=== PATIENT | female | born 1990 | race Caucasian/White ===

== ENCOUNTER 2022-08-07 13:29 | Outpatient (REF) | payer MEDICAID, SELFPAY ==
--- NOTE | ~2022-08-07 | XR_ITS ---
EXAMINATION: XR LUMBOSACRAL SPINE WITH OBLIQUES CLINICAL INFORMATION: Back pain with sciatica. COMPARISON: CT abdomen/pelvis dated 12/04/2014. TECHNIQUE: AP, both oblique, and lateral views of the lumbar spine. Lateral view of the lumbosacral junction. FINDINGS: The vertebral bodies and posterior elements are normal. The disc spaces are preserved and the vertebral alignment is normal. The paraspinal soft tissues are normal. XR/XR lumbar spine 4V min IMPRESSION: Unremarkable examination.
== END 2022-08-07 13:30 | disposition home or self-care (01) ==
LOC: HO.XRAY 13:29
PROVIDERS: PCP Registered Nurse; Visit Provider Internal Medicine
DX: M54.41 Lumbago with sciatica, right side (principal); M54.42 Lumbago with sciatica, left side
CPT/HCPCS: 72110

== ENCOUNTER → 2022-10-15 13:41 | Outpatient (BNVA) | payer MEDICAID, SELFPAY | PROVIDERS: PCP Registered Nurse; Visit Provider Obstetrics & Gynecology | DX: Z30.09 Encounter for other general counseling and advice on contraception (principal) | CPT/HCPCS: 99212 ==

== ENCOUNTER 2022-10-28 09:02 | Outpatient (REF) | payer MEDICAID, SELFPAY ==
[2022-10-28 16:07] LABS: CT PCR NOT DETECTED (Not Detect.); NG PCR NOT DETECTED (Not Detect.)
[2022-10-31 07:20] LABS: HPV mRNA E6/E7 rflx Detected (Not Detected)
[2022-10-31 07:23] LABS: HPV 16 RNA NOT DETECTED (NOT DETECTED)
== END 2022-10-28 09:03 | disposition home or self-care (01) ==
LOC: HO.LNP 09:02
PROVIDERS: PCP Registered Nurse; Visit Provider Obstetrics & Gynecology
DX: Z30.46 Encounter for surveillance of implantable subdermal contraceptive (principal); Z11.51 Encounter for screening for human papillomavirus (HPV)
CPT/HCPCS: 11982; 87491; 87591; 87624; 87625; 88142

== ENCOUNTER 2022-11-19 10:24 | Outpatient (REF) | payer MEDICAID, SELFPAY | END 2022-11-19 10:25 | disposition home or self-care (01) | LOC: HO.LNP 10:24 | PROVIDERS: PCP Registered Nurse; Visit Provider Obstetrics & Gynecology | DX: R87.810 Cervical high risk human papillomavirus (HPV) DNA test positive (principal); R87.610 Atypical squamous cells of undetermined significance on cytologic smear of cervix (ASC-US) | CPT/HCPCS: 57454; 81025; 88305 ==

== ENCOUNTER → 2022-12-12 11:00 | Outpatient (BNVA) | payer MEDICAID, SELFPAY | PROVIDERS: PCP Registered Nurse; Visit Provider Obstetrics & Gynecology | DX: Z30.09 Encounter for other general counseling and advice on contraception (principal); R87.610 Atypical squamous cells of undetermined significance on cytologic smear of cervix (ASC-US); R87.810 Cervical high risk human papillomavirus (HPV) DNA test positive | CPT/HCPCS: 99212 ==

== ENCOUNTER 2024-07-15 09:10 | Outpatient (REF) | payer MEDICAID, SELFPAY ==
[2024-07-15 11:23] LABS: MANUAL DIFF FLAG NO
[2024-07-15 11:35] LABS: Basophils Percent Auto 0.2 % (0-2); Eosinophils Percent Auto 0.2 % (0-4); Hemoglobin 15.8 g/dl (12.0-16.0); Imm Gran Abs Auto 0.02 X10*3/uL (0.00-0.03); Imm Gran Pct Auto 0.3 % (0.0-0.4); Lymphocytes Absolute Auto 1.7 X10*3/uL (1.2-4.9); Lymphocytes Percent Auto 26.2 % (20-40); Mean Corpuscular HGB Conc 35.1 g/dl (31.0-35.0); Mean Corpuscular Hemoglobin 32.5 pg (27.0-33.0); Mean Corpuscular Volume 92.6 fL (80.0-98.0); Mean Platelet Volume 10.1 fL (9.4-12.3); Monocytes Absolute Auto 0.4 X10*3/uL (0.1-1.2); Monocytes Percent Auto 6.2 % (2-11); Neutrophils Absolute Auto 4.4 x10*3/uL (2.0-8.3); Neutrophils Percent Auto 66.9 % (45-73); Platelet Count 279 X10*3/uL (160-400); Red Blood Count 4.86 X10*6/uL (4.20-5.50); Red Cell Distribution Width 12.4 % (11.0-16.0); White Blood Count 6.6 X10*3/uL (4.8-10.8)
[2024-07-15 12:02] LABS: Alanine Aminotransferase 35 U/L (0-31); Albumin Level 4.2 g/dL (3.5-5.0); Alkaline Phosphatase 67 U/L (39-117); Anion Gap 11 (12-20); Aspartate Amino Transferase 25 U/L (5-31); Blood Urea Nitrogen 6 mg/dL (9-16); Calcium 9.7 mg/dL (8.4-10.2); Carbon Dioxide 24 mmol/L (22-29); Chloride 107 mmol/L (96-108); Cholesterol 183 mg/dL (<200); Estimated Glomerular Filt Rate > 60; Glucose Random 87 mg/dL (60-115); HDL Cholesterol 44 mg/dL (>40); LDL Cholesterol Calculated 124 mg/dL (<100); Sodium 138 mmol/L (135-145); Total Protein 7.7 g/dL (6.5-8.0); Triglycerides 78 mg/dL (<150)
[2024-07-15 12:09] LABS: TSH reflex Free T4 0.53 uIU/mL (0.32-4.0)
[2024-07-15 12:12] LABS: Syphilis Screen Nonreactive (Nonreactive)
[2024-07-15 12:16] LABS: Estimated Average Glucose 85 mg/dL; Hemoglobin A1c % 4.6 % (<6.0)
[2024-07-15 12:17] LABS: ~HepC Num1 0.17 S/CO (0.00-0.79); ~Hepatitis C Antibody Nonreactive (Nonreactive)
[2024-07-15 12:43] LABS: Reflex LDLD? No
[2024-07-18 07:23] LABS: TS Negative Control Passed; TS Panel A 0; TS Panel B 0; TS Positive Control Passed; TSpotTB Negative (Negative)
[2024-07-19 17:18] LABS: HIV RNA PCR Qn Copies 29 copies/mL (NOT DETECTED); HIV RNA PCR Qn Log Copies 1.46 (NOT DETECTED)
[2024-07-20 15:09] LABS: Absolute CD3 Count 1616 cells/uL (840-3060); Absolute CD4 Count 639 cells/uL (490-1740); Absolute CD8 Count 987 cells/uL (180-1170); Absolute Lymphocytes 2033 cells/uL (850-3900); CD4 CD8 Ratio 0.65 (0.86-5.00); Percent CD3 Cells 80 % (57-85); Percent CD4 Cells 31 % (30-61); Percent CD8 Cells 49 % (12-42)
== END 2024-07-15 09:11 | disposition home or self-care (01) ==
LOC: HO.HHCL 09:10
PROVIDERS: PCP Student in an Organized Health Care Education/Training Program; Visit Provider General Practice
DX: B20 Human immunodeficiency virus [HIV] disease (principal); E66.3 Overweight
CPT/HCPCS: 36415; 80053; 80061; 83036; 84443; 85025; 86359; 86360; 86481; 86780; 86803; 87536

== ENCOUNTER 2024-10-21 11:50 | Outpatient (REF) | payer MEDICAID, SELFPAY ==
[2024-10-21 13:18] LABS: MANUAL DIFF FLAG NO
[2024-10-21 13:20] LABS: Basophils Percent Auto 0.3 % (0-2); Eosinophils Percent Auto 0.2 % (0-4); Hematocrit 42.4 % (37.0-47.0); Hemoglobin 15.3 g/dl (12.0-16.0); Imm Gran Abs Auto 0.02 X10*3/uL (0.00-0.03); Imm Gran Pct Auto 0.3 % (0.0-0.4); Lymphocytes Absolute Auto 1.9 X10*3/uL (1.2-4.9); Lymphocytes Percent Auto 29.5 % (20-40); Mean Corpuscular HGB Conc 36.1 g/dl (31.0-35.0); Mean Corpuscular Hemoglobin 32.7 pg (27.0-33.0); Mean Corpuscular Volume 90.6 fL (80.0-98.0); Mean Platelet Volume 10.1 fL (9.4-12.3); Monocytes Absolute Auto 0.5 X10*3/uL (0.1-1.2); Monocytes Percent Auto 8.5 % (2-11); Neutrophils Absolute Auto 3.9 x10*3/uL (2.0-8.3); Neutrophils Percent Auto 61.2 % (45-73); Platelet Count 273 X10*3/uL (160-400); Red Blood Count 4.68 X10*6/uL (4.20-5.50); Red Cell Distribution Width 12.8 % (11.0-16.0); White Blood Count 6.4 X10*3/uL (4.8-10.8)
[2024-10-21 13:37] LABS: Alanine Aminotransferase 36 U/L (0-31); Albumin Level 4.5 g/dL (3.5-5.0); Alkaline Phosphatase 78 U/L (39-117); Anion Gap 13 (12-20); Aspartate Amino Transferase 29 U/L (5-31); Bilirubin Total 1.4 mg/dL (0.0-1.0); Blood Urea Nitrogen 7 mg/dL (9-16); Carbon Dioxide 23 mmol/L (22-29); Chloride 107 mmol/L (96-108); Estimated Glomerular Filt Rate > 60; Glucose Random 73 mg/dL (60-115); Potassium 3.6 mmol/L (3.3-5.1); Sodium 139 mmol/L (135-145); Total Protein 8.3 g/dL (6.5-8.0)
[2024-10-21 13:52] LABS: Appearance Urine Clear; Color Urine Yellow; Glucose Urine UA Negative (Negative); Leukocyte Esterase Urine Negative (Negative); Nitrite Urine Negative (Negative); PH 5.5 (5.0-9.0); Specific Gravity - Urine 1.025 (1.005-1.025); UMIC TRIGGER UACC YES; Urine Blood Trace (Negative); Urine Ketones 40 mg/dL (Negative); Urine Protein Negative (Neg-Trace)
[2024-10-21 13:56] LABS: Bacteria Urine None Seen (None Seen); Hyaline Casts Urine 0-2 /LPF (0-2); Squamous Epithelial Cell Urine 0-2 /HPF (0-2); WBC Urine 0-5 /HPF (0-5)
[2024-10-21 15:01] LABS: CT PCR NOT DETECTED (Not Detect.); NG PCR NOT DETECTED (Not Detect.)
[2024-10-22 09:15] LABS: Hepatitis A Antibody IgG REACTIVE (Nonreactive); ~Hepatitis A Antibody IgG 8.35 S/CO (0.00-0.99)
[2024-10-22 09:32] LABS: HBS Num1 167.51 mIU/mL (0-7.99); HBc Num1 0.12 S/CO (0.00-0.79); HBsAGNum1 0.48 S/CO (0.00-0.99); Hepatitis B Core Antibody Nonreactive (Nonreactive); Hepatitis B Surface Antigen Negative (Negative); ~Hepatitis B Surface Antibody REACTIVE (Nonreactive)
[2024-10-22 09:34] LABS: Mumps Virus IgG Antibody >300.00 AU/mL; Rubella IgG Antibody 6.09 Index
[2024-10-22 19:14] LABS: HIV RNA PCR Qn Copies 141 copies/mL (NOT DETECTED); HIV RNA PCR Qn Log Copies 2.15 (NOT DETECTED)
[2024-10-27 16:13] LABS: Absolute CD3 Count 1685 cells/uL (840-3060); Absolute CD4 Count 738 cells/uL (490-1740); Absolute CD8 Count 954 cells/uL (180-1170); Absolute Lymphocytes 2009 cells/uL (850-3900); CD4 CD8 Ratio 0.77 (0.86-5.00); Percent CD3 Cells 84 % (57-85); Percent CD4 Cells 37 % (30-61); Percent CD8 Cells 47 % (12-42)
== END 2024-10-21 11:51 | disposition home or self-care (01) ==
LOC: HO.HHCL 11:50
PROVIDERS: Visit Provider Student in an Organized Health Care Education/Training Program
DX: B20 Human immunodeficiency virus [HIV] disease (principal)
CPT/HCPCS: 36415; 80053; 81001; 85025; 86359; 86360; 86704; 86706; 86708; 86735; 86762; 86765; 87340; 87491; 87536; 87591

== ENCOUNTER 2024-10-28 10:57 | Outpatient (REF) | payer MEDICAID, SELFPAY ==
[2024-10-29 03:32] LABS: CT PCR NOT DETECTED (Not Detect.); NG PCR NOT DETECTED (Not Detect.)
[2024-10-29 13:13] LABS: Bacterial Vaginosis PCR NEGATIVE (Negative); Candida Group PCR NOT DETECTED (Not Detect); Candida glab krusei PCR NOT DETECTED (Not Detect); Trichomonas vaginalis PCR NOT DETECTED (Not Detect)
== END 2024-10-28 10:58 | disposition home or self-care (01) ==
LOC: HO.LAB 10:57
PROVIDERS: PCP General Practice; Visit Provider Advanced Practice Midwife
DX: Z01.419 Encounter for gynecological examination (general) (routine) without abnormal findings (principal); N89.8 Other specified noninflammatory disorders of vagina
CPT/HCPCS: 0352U; 87491; 87591; 99395; 99459

== ENCOUNTER 2024-10-28 10:57 | Outpatient (AMB) | payer MEDICAID, SELFPAY ==
[2024-10-28 11:10] VITALS: BP 118/70; BMI 30.5
--- NOTE | 2024-10-28 11:10 | MHC.OFFVIS ---
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 Executive Communications Services: Director Executive Communications Present Information Interpreted: clinical only Town Marshal: Town Marshal Present Allergies ibuprofen Allergy (Mild, Verified 10/28/24 11:14) rash morphine Allergy (Unknown, Verified 10/28/24 11:10) itching tylenon Allergy (Mild, Uncoded 10/28/24 11:13) Rash SEAFOOD Allergy (Unknown, Uncoded 10/28/24 11:10) HIVES,DIFFICULTY BREATHING Medication List - Last Reconciled 10/28/24 by Della Pacheco CNM [id number] ala 50-200-25 mg (Biktarvy) 1 tab PO QAM Is last menstrual period known: Yes Last menstrual period: 10/23/24 HPI 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 Patient is HIV positive and has been well-controlled with Biktarvy for the last number of years. She had the HIV discovered in her with her 15-year-old [place] she also has a 9-year-old both were delivered by . Both are HIV negative she delivered the 2nd child at [facility] and she says all the appropriate testing and treatment of her happened and she is hoping at this point to have another baby with her . They have been together for many years he is still HIV negative and was re tested as recently as last month. They sometimes use condoms but she is also following her fertility with an sasha. She is arranging appointments with all of her providers to discuss her planning for a so she is sure that she does things correctly. She is trying to lose a little bit of weight by eating healthy and exercising more right now because she had gained a little bit of weight. 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 Her 9-year-old and especially her 15 older kind of urging her to have a baby and she is encouraging them to be patient because she wants to continue the conversations with offer doctors 1st. [facility] Medical History (Updated 10/28/24 @ 12:08 by Della Pacheco CNM) LGSIL on Pap smear of cervix HIV (human immunodeficiency virus infection) Panic attack Anxiety Social History Patient Tobacco Use Status: Never used Tobacco Female Reproductive History Menstrual Age of Menarche: 14 Duration of menses: 3-5 days Date of last menstrual period: 10/23/24 control method: none Total pregnancies: 2 Full term: 2 Date of last pap smear: 10/28/22 (ASCUS+hpc,2015 abn pap) History of abnormal pap smear: Yes (ASCUS) Physical Exam Vital Signs: Last Vital Signs BP 118/70 10/28/24 11:10 BMI result Body Mass Index 30.5 Const General: healthy appearing, comfortable, no acute distress, well developed and alert Nutritional Appearance: average body habitus Orientation/consciousness: patient oriented x3 Limitations: no limitations HEENT Head: Yes normocephalic Neck Neck: Yes normal visual inspection Chest Chest palpation & inspection: normal inspection of the chest Breast/axilla inspection: normal inspection of the breasts and normal inspection of the axillae Breast/axilla palpation: normal palpation of the breasts and normal palpation of the axillae Resp Effort & Inspection: normal respiratory effort GI Inspection: Yes normal to inspection, No Abdominal wall edema and No distended Palpation (GI): Soft to palpation and nontender Other: External exam within normal limits vagina is pink and moist cervix nulliparous pink smooth healthy with end of menses brown mucousy staining uterus feels midposition mobile nontender adnexa nontender good tone with Kegel. General: Yes bladder normal to palpation External Female Exam: normal external appearance and normal appearance of the urethra Speculum Exam - Vagina: normal appearance of the vagina, normal palpation and normal vaginal discharge Speculum Exam - Cervix: normal appearance of the cervix, normal palpation and nontender Bimanual exam- vagina & uterus: normal bimanual exam, normal palpation, uterine size normal, bladder normal to palpation, consistency normal, normal palpation, uterine mobility normal, uterine shape normal, No Cervical tenderness present, non-tender and no cervical motion tenderness Bimanual Exam- Adnexa, other: normal adnexae, no masses, normal and No adnexal tenderness Neuro General: patient oriented x3 Results Reviewed Results Reviewed: Name: Sunshine Quach Y Age/Sex: 32/F Attending: Tha Heredia MD : 1990 Submitted by: Tha Heredia MD Copies to: Alayna Blas [facility] MR #: [id number] Status: DEP REF Collected: 11/19/22 Location: [facility] Received: 11/19/22 Diagnosis A. Endocervix, curettage: Few superficial fragments of endocervical squamous epithelium within normal limits; mucoinflammatory material. B. Cervix, 5 o'clock, biopsy: - Mildly inflamed squamous mucosa with reactive changes; no fully-developed koilocytic atypia identified. - No endocervical epithelium identified. C. Cervix, 6 o'clock, biopsy: - Mildly inflamed squamous mucosa with reactive changes; no fully-developed koilocytic atypia identified. - No endocervical epithelium identified. D. Cervix, 12 o'clock, biopsy: - Minute fragment of endocervical epithelium within normal limits; scant mucoinflammatory material. - No squamous epithelium identified. COMMENT: The findings are concordant with the patient's recent Pap/cytology specimen ([id number]; ASCUS with positive HPV) the- slide reviewed. Clinical History ASCUS with positive high risk HPV cervical Microscopic Description A-D. Microscopic sections reviewed. Material Received A: ECC B: Cx bx 5 o'clock C: Cx bx 6 o'clock D: Cx bx 12 o'clock Gross Description Received in four parts. Part A: Received in formalin labeled ECC is a 0.4 x 0.4 x 0.15 cm. aggregate of mucus and blood with Patient: Sunshine Quach Y Age/Sex: 32/F MR#: [id number] Page 1 of 2 Surgical Pathology [id number] delicate shards of bloom-pink tissue. The specimen is submitted in toto in a single cassette labeled A. Part B: Received in formalin labeled Cx bx 5 o'clock is a 0.7 cm. in greatest dimension, glistening, semitranslucent, rubbery, ruano, white-pink, wedge-shaped fragment of mucosa, which is submitted in toto i a single cassette labeled B. Part C: Received in formalin labeled Cx bx 6 o'clock is a 0.35 cm. in greatest dimension, glistening, semitranslucent, rubbery, bloom-pink, wedge-shaped fragment of mucosa, which is submitted in toto in a single cassette labeled C. Part D: Received in formalin labeled Cx bx 12 o'clock is a 0.4 x 0.3 x 0.1 cm. aggregate of predominantly clear mucus and blood with scant delicate threads of bloom-pink tissue. The specimen is submitted in toto in a single cassette labeled D. CEDS Copies To Alayna Blas [facility] [address] [place] [address] Tha Heredia MD [address] [place] [address] Dr. Pandya [address] [place] [id number] NOTE: Some or all of the immunohistochemical tests reported herein may have been developed and their performance characteristics determined by [facility]. They have not been cleared or approved by the U.S. Food and Drug Administration (FDA). However, the FDA has determined that such clearance or approval is not necessary. This laboratory is certified under the Clinical Laboratory Improvement Amendments of 1988 (CLIA) as qualified to perform high complexity clinical laboratory testing. Electronically Signed By: Dewey No MD 11/20/22 2850 Patient: Sunshine Quach Age/Sex: 32/F MR#: [id number] Assessment & Plan Assessment & Plan (1) Nexplanon removal: Code(s): Z30.46 - Encounter for surveillance of implantable subdermal contraceptive Category: Medical (2) ASCUS with positive high risk HPV cervical: Code(s): R87.610 - Atypical squamous cells of undetermined significance on cytologic smear of cervix (ASC-US); R87.810 - Cervical high risk human papillomavirus (HPV) DNA test positive Category: Medical (3) HIV (human immunodeficiency virus infection): Comment: Patient states she has will managed with her Biktarvy she sees providers at the [facility], is meeting with them 11/09/24 discuss planning of . 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 Patient is HIV positive and has been well-controlled with Biktarvy for the last number of years. She had the HIV discovered in her with her 15-year-old [place] she also has a 9-year-old both were delivered by . Both are HIV negative she delivered the 2nd child at [facility] and she says all the appropriate testing and treatment of her happened and she is hoping at this point to have another baby with her . They have been together for many years he is still HIV negative and was re tested as recently as last month. They sometimes use condoms but she is also following her fertility with an sasha. She is arranging appointments with all of her providers to discuss her planning for a so she is sure that she does things correctly. She is trying to lose a little bit of weight by eating healthy and exercising more right now because she had gained a little bit of weight. 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 Her 9-year-old and especially her 15 older kind of urging her to have a baby and she is encouraging them to be patient because she wants to continue the conversations with offer doctors 1st. Discussed all of the above in great detail she would be at high-risk and would be recommended to initiate care with oil analyst providers at [facility] at very very beginning of is not beforehand for planning purposes. She remembers that the Biktarvy was not contraindicated in and she was already asked does questions of her providers and it was what she was managed on in her previous . She is hoping for the best to maintain HIV not detectable and prevent transmission. I offered vitamins prescription for her preparation but she does not want to get her kids excited by having see a vitamin bottle so she will get multivitamin with folic acid 1 a day vitamins for women at her pharmacy.. I applauded her planning and consulting of all her providers. Reviewed again that we do not have birthing center and would not be able to manage her at [facility]. Pap smear with Co testing is done today and we will review the results when they arrive and let her know if there is anything abnormal she will be referred back to Dr. Heredia for management. Coding Level of Care Code Est Pt Prev Care 18-39y([id number]) Diagnoses Nexplanon removal Z30.46 ASCUS with positive high risk HPV cervical R87.610; R87.810 HIV (human immunodeficiency virus infection) B20 Well woman exam Z01.419 Patient desires Z31.9
== END 2024-10-28 12:01 | disposition home or self-care (01) ==
LOC: HO.HWSM 10:57
PROVIDERS: PCP General Practice; Visit Provider Advanced Practice Midwife
DX: Z01.419 Encounter for gynecological examination (general) (routine) without abnormal findings (principal); R87.610 Atypical squamous cells of undetermined significance on cytologic smear of cervix (ASC-US); R87.810 Cervical high risk human papillomavirus (HPV) DNA test positive; B20 Human immunodeficiency virus [HIV] disease
CPT/HCPCS: 99395; 99459

== ENCOUNTER 2024-10-28 12:26 | Outpatient (REF) | payer MEDICAID, SELFPAY ==
[2024-10-29 10:43] LABS: HPV 16,18/45 See PAP report
== END 2024-10-28 12:27 | disposition home or self-care (01) ==
LOC: HO.LNP 12:26
PROVIDERS: Visit Provider Advanced Practice Midwife
DX: Z00.00 Encounter for general adult medical examination without abnormal findings (principal); N89.8 Other specified noninflammatory disorders of vagina
CPT/HCPCS: 87624; 88175

== ENCOUNTER 2024-12-20 14:32 | Outpatient (REF) | payer MEDICAID, SELFPAY ==
--- OUTSIDE RECORDS SUMMARY | 2024-12-20 15:51 | XMS_ITS | Encounter Summary ---
Author Organization [facility] Address [address] [place] [address] Care Team Providers Care [place] Name Role Phone Physician, Pcp Unknown Primary Care Provider Naima vailable Reason for Visit * Reason Comments Flank Pain Encounter Details Date Type Department Care Team (Late st Contact Info) Description 12/18/2024 7:05 PM EST - 12/18/2024 9:11 PM EST Emergency [facility] Emergency [address] [place] [address] Discharge Disposition: Home or Self Care Social History Tobacco Use Types Packs/Day Years Used Date Smoking Tobacco: Former Cigarettes Smokeless Tobacco: Never Alcohol Use Standard Drinks/Week Comments Never 0 (1 standard drink = 0.6 oz pur e alcohol) Comments No Sex and Gender Information Value Date Recorded Sex Assigned at Female 09/28/2024 5:19 PM EST Legal Sex Female 5:43 AM EST Gender Identity Female 09/28/2024 5:19 PM EST Sexual Orientation Straight 09/28/2024 5: 19 PM EST documented as of this encounter Last Filed Vital Signs Vital Sign Reading Time Taken Comments Blood Pressure 122/85 12/18/2024 7:29 PM EST Pulse 71 12/18/2024 7:29 PM EST Temperature 37.3 ??C (99.1 ??F) 12/18/2024 7:29 PM ES T Respiratory Rate 20 12/18/2024 7:29 PM EST Oxygen Saturation 99% 12/18/2024 7:29 PM EST Inhaled Oxygen Concentration - - Weight 74.4 kg (164 lb) 12/18/2024 7:29 PM EST Height 157.5 cm (5' 2 ) 12/18/2024 7:29 PM EST Body Mass Index 30 12/18/2024 7:29 PM EST documented in this encounter Functional Status * Are you deaf or do you have serious difficulty hearing? Answer Date of Assessment Author No 11/01/2024 3:19 PM Yoni Torres RN * Are you blind or do you have serious difficulty seeing, even when wearing glasses? Answer Date of Assessment Author No 11/01/2024 3:19 PM Yoni Torres RN * Do you have serious difficulty walking or climbing stairs? Answer Date of Assessment Author No 11/01/2024 3:19 PM Yoni Torres RN * Do you have serious difficulty dressing or bathing? Answer Date of Assessment Author No 11/01/2024 3:19 PM Yoni Torres RN * Because of a physical, mental, or emotional condition, do you have serious difficulty doing errandsalone such as visiting the doctor? Answer Date of Assessment Author No 11/01/2024 3:19 PM Yoni Torres RN documented as of this encounter Mental Status * Because of a physical, mental, or emotional condition, do you have serious difficulty concentrating, remembering, or making decisions? (5 years old or older) Answer Entry Date Author No 11/01/2024 3:19 PM Yoni Torres RN documented in this encounter Discharge Disposition Disposition Code Departure Means Destination Home or Self Care documented in this encounter Progress Notes * Kristi Strange RN - 12/18/2024 7:31 PM EST PT C/O LOWER ABD PAIN FOR THE LAST 3 DAYS. PT DENIES HEMATURIA OR DISCHARGE. + NAUSEA documented in this encounter Plan of Treatment Not on file documented as of this encounter Procedures Procedure Name Priority Date/Time Associated Diagnosis Comments CBC WITH AUTO DIFFERENTIAL STAT 12/18/2024 7:49 PM EST CBC AND DIFFERENTIAL STAT 12/18/2024 7:49 PM EST LIPASE STAT 12/18/2024 7:49 PM EST COMPREHENSIVE METABOLIC PANEL STAT 12/18/2024 7:49 PM EST documented in this encounter Results * (ABNORMAL) CBC auto differential (12/18/2024 7:49 PM EST) [facility] WBC 10.6 4.8 - 10.8 K/mcL LAB HEMETOLOGY METHOD 12/18/2024 8:42 PM [facility] RBC 4.60 3.80 - 4.80 M/mcL LAB HEMETOLOGY METHOD 12/18/2024 8:42 PM [facility] Hemoglobin 14.9 11.5 - 16.0 g/dL LAB HEMETOLOGY METHOD 12/18/2024 8:42 PM [facility] Hematocrit 43.1 35.0 - 47.0 % LAB HEMETOLOGY METHOD 12/18/2024 8:42 PM [facility] MCV 93.9 79.0 - 98.0 FL LAB HEMETOLOGY METHOD 12/18/2024 8:42 PM [facility] MCH 32.5(H) 27.0 - 32.0 pcg LAB HEMETOLOGY METHOD 12/18/2024 8:42 PM [facility] MCHC 34.6 32.0 - 37.0 g/dL LAB HEMETOLOGY METHOD 12/18/2024 8:42 PM [facility] RDW 12.8 11.0 - 15.0 % LAB HEMETOLOGY METHOD 12/18/2024 8:42 PM [facility] Platelets 267 130 - 400 K/mcL LAB HEMETOLOGY METHOD 12/18/2024 8:42 PM [facility] MPV 10.0 7.0 - 11.0 FL LAB HEMETOLOGY METHOD 12/18/2024 8:42 PM [facility] NRBC 0.0 <1.0 % LAB HEMETOLOGY METHOD 12/18/2024 8:42 PM [facility] NRBC Absolute 0.00 <0.10 K/mcL LAB HEMETOLOGY METHOD 12/18/2024 8:42 PM [facility] Neutrophils Relative 66.7 % LAB HEMETOLOGY METHOD 12/18/2024 8:42 PM [facility] Lymphocytes Relative 25.9 % LAB HEMETOLOGY METHOD 12/18/2024 8:42 PM [facility] Monocytes Relative 6.4 % LAB HEMETOLOGY METHOD 12/18/2024 8:42 PM [facility] Eosinophils Relative 0.3 % LAB HEMETOLOGY METHOD 12/18/2024 8:42 PM [facility] Basophils Relative 0.3 % LAB HEMETOLOGY METHOD 12/18/2024 8:42 PM [facility] Immature Granulocytes Relative 0.4 % LAB HEMETOLOGY METHOD 12/18/2024 8:42 PM [facility] Neutrophils Absolute 7.07(H) 1.50 - 7.00 K/mcL LAB HEMETOLOGY METHOD 12/18/2024 8:42 PM [facility] Lymphocytes Absolute 2.75 1.00 - 5.00 K/mcL LAB HEMETOLOGY METHOD 12/18/2024 8:42 PM [facility] Monocytes Absolute 0.68 0.20 - 1.00 K/mcL LAB HEMETOLOGY METHOD 12/18/2024 8:42 PM [facility] Eosinophils Absolute 0.03 0.00 - 0.50 K/mcL LAB HEMETOLOGY METHOD 12/18/2024 8:42 PM [facility] Basophils Absolute 0.03 0.00 - 0.20 K/mcL LAB HEMETOLOGY METHOD 12/18/2024 8:42 PM [facility] Immature Granulocytes Absolute 0.04(H) 0.00 - 0.03 K/mcL LAB HEMETOLOGY METHOD 12/18/2024 8:42 PM EST [facility] Blood Venous blood specimen / Unknown Venipuncture / Unknown 12/18/2024 7:49 PM EST 12/18/2024 8:30 PM EST Mary Beth Zimmerman LAB BLOOD ORDERABLES Alanna l Result Performing Organization Address City/[facility]/ZIP Co de Phone Number [facility] [address] [place] [address], [place] [phone] * Lipase (12/18/2024 7:49 PM EST) Lipase 46 13 - 75 unit/L LAB CHEMISTRY METHOD 12/18/2024 9:04 PM [facility] Blood Venous blood specimen / Unknown Venipuncture / Unknown 12/18/2024 7:49 PM EST 12/18/2024 8:30 PM EST Eddie Julius Zimmerman LAB BLOOD ORDERABLES Alanna l Result Performing Organization Address City/[facility]/ZIP Co de Phone Number [facility] [address] [place] [address], [place] [phone] * Comprehensive metabolic panel (12/18/2024 7:49 PM EST) Sodium 136 133 - 145 mmol/L LAB CHEMISTRY METHOD 12/18/2024 9:05 PM [facility] Potassium 4.2 3.5 - 5.5 mmol/L LAB CHEMISTRY METHOD 12/18/2024 9:05 PM [facility] Chloride 105 96 - 110 mmol/L LAB CHEMISTRY METHOD 12/18/2024 9:05 PM [facility] CO2 24 21 - 32 mmol/L LAB CHEMISTRY METHOD 12/18/2024 9:05 PM [facility] Anion Gap 7 3 - 11 LAB CHEMISTRY METHOD 12/18/2024 9:05 PM [facility] Glucose 86 70 - 100 mg/dL LAB CHEMISTRY METHOD 12/18/2024 9:05 PM [facility] BUN 13 5 - 25 mg/dL LAB CHEMISTRY METHOD 12/18/2024 9:05 PM [facility] Creatinine 0.68 0.50 - 1.10 mg/dL LAB CHEMISTRY METHOD 12/18/2024 9:05 PM [facility] eGFR 117 >=60 mL/min/1. 73m2 LAB CHEMISTRY METHOD 12/18/2024 9:05 PM [facility] Comment:Calculation based on the??Chronic Kidney Disease Epidemiology Collaboration (CKD-EPI) equation refit??without adjustment for race. BUN/Creatinine Ratio 19.1 LAB CHEMISTRY METHOD 12/18/2024 9:05 PM [facility] Calcium 9.0 8.5 - 10.5 mg/dL LAB CHEMISTRY METHOD 12/18/2024 9:05 PM [facility] AST (SGOT) 17 10 - 42 unit/L LAB CHEMISTRY METHOD 12/18/2024 9:05 PM [facility] ALT (SGPT) 34 10 - 60 unit/L LAB CHEMISTRY METHOD 12/18/2024 9:05 PM [facility] Alkaline Phosphatase 73 42 - 121 unit/L LAB CHEMISTRY METHOD 12/18/2024 9:05 PM [facility] Total Protein 7.5 6.0 - 8.0 g/dL LAB CHEMISTRY METHOD 12/18/2024 9:05 PM [facility] Albumin 3.8 3.2 - 5.0 g/dL LAB CHEMISTRY METHOD 12/18/2024 9:05 PM [facility] Total Bilirubin 0.8 0.0 - 1.4 mg/dL LAB CHEMISTRY METHOD 12/18/2024 9:05 PM [facility] Blood Venous blood specimen / Unknown Venipuncture / Unknown 12/18/2024 7:49 PM EST 12/18/2024 8:30 PM EST us [facility] Julius Zimmerman DO LAB BLOOD ORDERABLES Alanna l Result Performing Organization Address City/State/[facility] Co de Phone Number [facility] [address] [place] [address], documented in this encounter Visit Diagnoses Not on filedocumented in this encounter Care Teams [place] Relationship Specialty Start Date End Date Physician, Pcp Unknown PCP - General 09/28/24 documented as of this encounter
--- OUTSIDE RECORDS SUMMARY | 2024-12-20 15:51 | XMS_ITS | Clinical Summary ---
Author Organization 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 Phone Physician, Pcp Unknown Primary Care Provider Naima vailable Allergies Active Allergy Reactions Criticality Noted Date Comments Ibuprofen Hives 09/28/2024 Morphine Rash High 03/18/2022 Acetaminophen Hives 09/28/2024 Medications No known medications Active Problems No known active problems Encounters Date Type Department Care Team Description 12/18/2024 7:05 PM EST - 12/18/2024 9:11 PM EST [facility] Emergency [address] [place] [phone] Discharge Disposition: Home or Self Care 11/01/2024 2:14 PM EST - 11/01/2024 5:08 PM EST [facility] Emergency [address] [place] [phone] Chest pain, unspecified type (Primary Dx) Discharge Disposition: Home or Self Care 09/28/2024 5:13 PM EST - 09/28/2024 5:36 PM EST [facility] Emergency [address] [place] [phone] Eduin Tuttle MD COVID (Primary Dx) Discharge Disposition: Home or Self Care from Last 3 Months Social History Tobacco Use Types Packs/Day Years Used Date Smoking Tobacco: Former Cigarettes Smokeless Tobacco: Never Tobacco Cessation:Counseling Given: Not Answered Alcohol Use Standard Drinks/Week Comments Never 0 (1 standard drink = 0.6 oz pur e alcohol) Comments No Sex and Gender Information Value Date Recorded Sex Assigned at Female 09/28/2024 5:19 PM EST Legal Sex Female 5:43 AM EST Gender Identity Female 09/28/2024 5:19 PM EST Sexual Orientation Straight 09/28/2024 5: 19 PM EST Obstetrics History Last Filed Vital Signs Vital Sign Reading [...] Mass Index 30 12/18/2024 7:29 PM EST Plan of Treatment Health Maintenance Due Date Last Done Comments Hepatitis B Vaccines (1 of 3 - 19+ 3-dose series) 2009 Cervical Cancer Screening: P ap Smear 2011 DTaP,Tdap,and Td Vaccines (3 - Td or Tdap) 09/02/2016 03/03/2016, 09/30/2015 Depression Screening 10/13/2022 HIV Screening 10/13/2022 Hepatitis C Screening 10/13/2022 Social Influencers of Health Screening 10/13/2022 COVID-19 Vaccine (3 - 2023-2 5 season) 2024 05/10/2021, 04/19/2021 Influenza Vaccine (#1) 2024 08/06/2015 Hepatitis A Vaccines Aged Out 04/12/2022, 04/01/2019 No longer eligible based on patient's age to complete this topic Meningococcal ACWY Vaccine Aged Out 01/14/2024 N o longer eligible based on patient's age to complete this topic Pneumococcal Vaccine: Pediatrics (0 to 5 Years) and At-Risk Patients (6 to 64 Years) Aged Out 07/19/2024, 09/30/2015 No longer eligible based on patient's age to complete this topic HIB Vaccines Aged Out No longer eligi ble based on patient's age to complete this topic HPV Vaccines Aged Out No longer eligi ble based on patient's age to complete this topic IPV Vaccines Aged Out No longer eligi ble based on patient's age to complete this topic MMR Vaccines Aged Out No longer eligi ble based on patient's age to complete this topic Meningococcal B Vacine Aged Out No lo nger eligible based on patient's age to complete this topic RSV Immunization Patients Under 20 months Aged Out No longer eligible b ased on patient's age to complete this topic Varicella Vaccines Aged Out No longer eligible based on patient's age to complete this topic Procedures Procedure Name Priority Date/Time Associated Diagnosis Comments CBC WITH AUTO DIFFERENTIAL STAT 12/18/2024 7:49 PM EST LIPASE STAT 12/18/2024 7:49 PM EST COMPREHENSIVE METABOLIC PANEL STAT 12/18/2024 7:49 PM EST CBC AND DIFFERENTIAL STAT 12/18/2024 7:49 PM EST TROPONIN I HIGH SENSITIVITY STAT 11/01/2024 2:23 PM EST XR CHEST 2 VIEWS STAT 11/01/2024 12:3 1 PM EST CBC WITH AUTO DIFFERENTIAL STAT 11/01/2024 12:11 PM EST CBC AND DIFFERENTIAL STAT 11/01/2024 12:11 PM EST COMPREHENSIVE METABOLIC PANEL STAT 11/01/2024 12:11 PM EST D-DIMER STAT 11/01/2024 12:11 PM EST TROPONIN I HIGH SENSITIVITY STAT 11/01/2024 12:11 PM EST ECG 12-LEAD STAT 11/01/2024 11:47 AM EST ECG ANNOTATED 11/01/2024 RESPIRATORY VIRUS PANEL MOLECULAR STUDY STAT 09/28/2024 4:05 PM EST from Last 3 Months Results * (ABNORMAL) CBC auto differential (12/18/2024 7:49 PM EST) Only the most recent of2 resultswithin the time period is included. [facility] Signature WBC 10.6 4.8 - 10.8 K/mcL LAB HEMETOLOGY METHOD 12/18/2024 8:42 PM [facility] RBC 4.60 3.80 - 4.80 M/mcL LAB HEMETOLOGY METHOD 12/18/2024 8:42 PM [facility] Hemoglobin 14.9 11.5 - 16.0 g/dL LAB HEMETOLOGY METHOD 12/18/2024 8:42 PM [facility] Hematocrit 43.1 35.0 - 47.0 % LAB HEMETOLOGY METHOD 12/18/2024 8:42 PM [facility] MCV 93.9 79.0 - 98.0 FL LAB HEMETOLOGY METHOD 12/18/2024 8:42 PM [facility] MCH 32.5(H) 27.0 - 32.0 pcg LAB HEMETOLOGY METHOD 12/18/2024 8:42 PM [facility] MCHC 34.6 32.0 - 37.0 g/dL LAB HEMETOLOGY METHOD 12/18/2024 8:42 PM [facility] RDW 12.8 11.0 - 15.0 % LAB HEMETOLOGY METHOD 12/18/2024 8:42 PM [facility] Platelets 267 130 - 400 K/mcL LAB HEMETOLOGY METHOD 12/18/2024 8:42 PM [facility] MPV 10.0 7.0 - 11.0 FL LAB HEMETOLOGY METHOD 12/18/2024 8:42 PM [facility] NRBC 0.0 <1.0 % LAB HEMETOLOGY METHOD 12/18/2024 8:42 PM [facility] NRBC Absolute 0.00 <0.10 K/mcL LAB HEMETOLOGY METHOD 12/18/2024 8:42 PM [facility] Neutrophils Relative 66.7 % LAB HEMETOLOGY METHOD 12/18/2024 8:42 PM [facility] Lymphocytes Relative 25.9 % LAB HEMETOLOGY METHOD 12/18/2024 8:42 PM [facility] Monocytes Relative 6.4 % LAB HEMETOLOGY METHOD 12/18/2024 8:42 PM [facility] Eosinophils Relative 0.3 % LAB HEMETOLOGY METHOD 12/18/2024 8:42 PM [facility] Basophils Relative 0.3 % LAB HEMETOLOGY METHOD 12/18/2024 8:42 PM [facility] Immature Granulocytes Relative 0.4 % LAB HEMETOLOGY METHOD 12/18/2024 8:42 PM [facility] Neutrophils Absolute 7.07(H) 1.50 - 7.00 K/mcL LAB HEMETOLOGY METHOD 12/18/2024 8:42 PM [facility] Lymphocytes Absolute 2.75 1.00 - 5.00 K/mcL LAB HEMETOLOGY METHOD 12/18/2024 8:42 PM [facility] Monocytes Absolute 0.68 0.20 - 1.00 K/mcL LAB HEMETOLOGY METHOD 12/18/2024 8:42 PM [facility] Eosinophils Absolute 0.03 0.00 - 0.50 K/mcL LAB HEMETOLOGY METHOD 12/18/2024 8:42 PM [facility] Basophils Absolute 0.03 0.00 - 0.20 K/mcL LAB HEMETOLOGY METHOD 12/18/2024 8:42 PM [facility] Immature Granulocytes Absolute 0.04(H) 0.00 - 0.03 K/mcL LAB HEMETOLOGY METHOD 12/18/2024 8:42 PM [facility] Blood Venous blood specimen / Unknown Venipuncture / Unknown 12/18/2024 7:49 PM EST 12/18/2024 8:30 PM EST Mary Beth Zimmerman LAB BLOOD ORDERABLES Alanna l Result Performing Organization Address City/[facility]/ZIP Co de Phone Number [facility] [address] [place] [address], [place] [phone] * Lipase (12/18/2024 7:49 PM EST) Pathologist [facility] Lipase 46 13 - 75 unit/L LAB CHEMISTRY METHOD 12/18/2024 9:04 PM [facility] Blood Venous blood specimen / Unknown Venipuncture / Unknown 12/18/2024 7:49 PM EST 12/18/2024 8:30 PM EST Mary Beth Zimmerman LAB BLOOD ORDERABLES Alanna l Result Performing Organization Address [facility] Co de Phone Number [facility] [address] [place] [address], [place] [phone] * Comprehensive metabolic panel (12/18/2024 7:49 PM EST) Only the most recent of2 resultswithin the time period is included. Pathologist [facility] Sodium 136 133 - 145 mmol/L LAB CHEMISTRY METHOD 12/18/2024 9:05 PM [facility] Potassium 4.2 3.5 - 5.5 mmol/L LAB CHEMISTRY METHOD 12/18/2024 9:05 PM [facility] Chloride 105 96 - 110 mmol/L LAB CHEMISTRY METHOD 12/18/2024 9:05 PM [facility] CO2 24 21 - 32 mmol/L LAB CHEMISTRY METHOD 12/18/2024 9:05 PM [facility] Anion Gap 7 3 - 11 LAB CHEMISTRY METHOD 12/18/2024 9:05 PM [facility] Glucose 86 70 - 100 mg/dL LAB CHEMISTRY METHOD 12/18/2024 9:05 PM [facility] BUN 13 5 - 25 mg/dL LAB CHEMISTRY METHOD 12/18/2024 9:05 PM [facility] Creatinine 0.68 0.50 - 1.10 mg/dL LAB CHEMISTRY METHOD 12/18/2024 9:05 PM [facility] eGFR 117 >=60 mL/min/1. 73m2 LAB CHEMISTRY METHOD 12/18/2024 9:05 PM [facility] Comment:Calculation based on the??Chronic Kidney Disease Epidemiology Collaboration (CKD-EPI) equation refit??without adjustment for race. BUN/Creatinine Ratio 19.1 LAB CHEMISTRY METHOD 12/18/2024 9:05 PM [facility] Calcium 9.0 8.5 - 10.5 mg/dL LAB CHEMISTRY METHOD 12/18/2024 9:05 PM [facility] AST (SGOT) 17 10 - 42 unit/L LAB CHEMISTRY METHOD 12/18/2024 9:05 PM [facility] ALT (SGPT) 34 10 - 60 unit/L LAB CHEMISTRY METHOD 12/18/2024 9:05 PM [facility] Alkaline Phosphatase 73 42 - 121 unit/L LAB CHEMISTRY METHOD 12/18/2024 9:05 PM [facility] Total Protein 7.5 6.0 - 8.0 g/dL LAB CHEMISTRY METHOD 12/18/2024 9:05 PM [facility] Albumin 3.8 3.2 - 5.0 g/dL LAB CHEMISTRY METHOD 12/18/2024 9:05 PM [facility] Total Bilirubin 0.8 0.0 - 1.4 mg/dL LAB CHEMISTRY METHOD 12/18/2024 9:05 PM [facility] Blood Venous blood specimen / Unknown Venipuncture / Unknown 12/18/2024 7:49 PM EST 12/18/2024 8:30 PM EST Mary Beth Zimmerman DO LAB BLOOD ORDERABLES Alanna l Result Performing Organization Address [facility]/ZIP Co de Phone Number [facility] [address] [place] [address], [place] [phone] * Troponin I high sensitivity (11/01/2024 2:23 PM EST) Only the most recent of2 resultswithin the time period is included. High Sensitivity Troponin I 5 <=54 ng/L LAB CHEMISTRY METHOD 11/01/2024 3:42 PM EST [facility] Blood Venous blood specimen / Unknown Venipuncture / Unknown 11/01/2024 2:23 PM EST 11/01/2024 2:58 PM EST Narrative [facility] - 11/01/2024 3:42 PM EST High levels of biotin in samples may falsely decrease hsTroponin values. ??Use caution when interpreting hsTroponin results in patients taking biotin who exhibit renal impairment (eGFR <60) or in patients taking more than 20 mg/day of biotin. Pan Motley MD LAB BLOOD ORDERABLES Final Res ult Performing Organization Address [facility] de Phone Number [facility] [address] [place] [address], [place] [phone] * XR Chest 2 Views (11/01/2024 12:31 PM EST) Anatomical Region Laterality Modality Body Radiographic Irma ging 11/01/2024 12:4 7 PM EST Impressions 11/01/2024 12:48 PM EST The lungs are clear bilaterally. ??The mediastinum appears within normal limits. -------- FINAL REPORT -------- Dictated By: Manjinder Pearl Dictated Date: 11/01/2024 12:47 ET Assigned Physician: Manjinder Pearl Reviewed and Electronically Signed By: Manjinder Pearl Signed Date: 11/01/2024 12:48 ET Workstation ID: [id number] Transcribed By: Self Edit Transcribed Date: 11/01/2024 12:47 ET Narrative 11/01/2024 12:48 PM EST Frontal and lateral view of the chest COMPARISON: Chest radiograph March 2024 INDICATION: Chest pain Procedure Note Manjinder Pearl MD - 11/01/2024 Frontal and lateral view of the chest COMPARISON: Chest radiograph March 2024 INDICATION: Chest pain IMPRESSION: The lungs are clear bilaterally. The mediastinum appears within normallimits. -------- FINAL REPORT -------- Dictated By: Manjinder Pearl Dictated Date: 11/01/2024 12:47 ET Assigned Physician: Manjinder Pearl Reviewed and Electronically Signed By: Manjinder Pearl Signed Date: 11/01/2024 12:48 ET Workstation ID: [id number] Transcribed By: Self Edit Transcribed Date: 11/01/2024 12:47 ET Pan Motley MD IMG XR PROCEDURES Final Result * D-Dimer (11/01/2024 12:11 PM EST) D-Dimer, Quant (D-DU) <150 <=230 ng/mL DDU LAB COAGULATION METHOD 11/01/2024 1:06 PM EST [facility] Blood Venous blood specimen / Unknown Venipuncture / Unknown 11/01/2024 12:11 PM EST 11/01/2024 12:18 PM EST Narrative [facility] - 11/01/2024 1:06 PM EST D-Dimer <230 ng/mL (D-Dimer units) is the threshold for exclusion of DVT/PE. D-Dimer may be elevated in: Critically ill, severely infected, trauma patients, DIC, acute CVA, acute TX, unstable angina, AF, old age, , and smoking. D-Dimer may be decreased with: Initiation of heparin therapy and oral anticoagulants. Pan Motley MD LAB BLOOD ORDERABLES Final Res ult [facility] [address] [place] [address], [place] [phone] * ECG 12 lead (11/01/2024 11:47 AM EST) [facility] Ventricular Rate ECG 72 BPM GEMUSE Atrial Rate 72 BPM GEMUSE P-R Interval 152 ms GEMUSE QRS Duration 84 ms GEMUSE Q-T Interval 402 ms GEMUSE QTc 440 ms GEMUSE P Wave Ione 49 degrees GEMUSE R Ione 67 degrees GEMUSE T Ione 24 degrees GEMUSE ECG Interpretation Normal sinus rhythm Nonspecific T wave abnormality When compared with ECG of 05-APR-2024 23:52, Nonspecific T wave abnormality, worse in Anterolateral leads Confirmed by JASMEET HOWARD ([id number]) on 11/02/2024 3:56:54 AM GEMUSE 11/01/2024 11:4 7 AM EST 11/02/2024 3:56 AM EST Kristy HAYES ECG ORDERABLES Final Result GEMUSE * ECG-Annotated (11/01/2024) Moe Aparicio MD ECG ORDERABLES Final Result * (ABNORMAL) Respiratory virus panel molecular study (09/28/2024 4:05 PM EST) [facility] Adenovirus Detection by PCR Not Detected Not Detected LAB MICROBIOLOGY METHOD 09/28/2024 5:10 PM EST [facility] Influenza A PCR Not Detected Not Detected LAB MICROBIOLOGY METHOD 09/28/2024 5:10 PM EST [facility] Influenza B PCR Not Detected Not Detected LAB MICROBIOLOGY METHOD 09/28/2024 5:10 PM EST [facility] Coronavirus 229E Not Detected Not Detected LAB MICROBIOLOGY METHOD 09/28/2024 5:10 PM [facility] Coronavirus HKU1 Not Detected Not Detected LAB MICROBIOLOGY METHOD 09/28/2024 5:10 PM EST [facility] Coronavirus OC43 Not Detected Not Detected LAB MICROBIOLOGY METHOD 09/28/2024 5:10 PM [facility] Coronavirus NL63 Not Detected Not Detected LAB MICROBIOLOGY METHOD 09/28/2024 5:10 PM [facility] Parainfluenza Virus 1 Not Detected Not Detected LAB MICROBIOLOGY METHOD 09/28/2024 5:10 PM [facility] Parainfluenza Virus 2 Not Detected Not Detected LAB MICROBIOLOGY METHOD 09/28/2024 5:10 PM [facility] Parainfluenza Virus 3 Not Detected Not Detected LAB MICROBIOLOGY METHOD 09/28/2024 5:10 PM [facility] Parainfluenza Virus 4 Not Detected Not Detected LAB MICROBIOLOGY METHOD 09/28/2024 5:10 PM [facility] RSV PCR Not Detected Not Detected LAB MICROBIOLOGY METHOD 09/28/2024 5:10 PM [facility] Human Metapneumovirus A and B Not Detected Not Detected LAB MICROBIOLOGY METHOD 09/28/2024 5:10 PM [facility] Rhinovirus/Entero virus Not Detected Not Detected LAB MICROBIOLOGY METHOD 09/28/2024 5:10 PM [facility] Bordetella pertussis Not Detected Not Detected LAB MICROBIOLOGY METHOD 09/28/2024 5:10 PM [facility] Bordetella parapertussis Not Detected Not Detected LAB MICROBIOLOGY METHOD 09/28/2024 5:10 PM [facility] Mycoplasma pneumo by PCR Not Detected Not Detected LAB MICROBIOLOGY METHOD 09/28/2024 5:10 PM [facility] Chlamydia pneumoniae Not Detected Not Detected LAB MICROBIOLOGY METHOD 09/28/2024 5:10 PM [facility] SARS COV-2 Detected(A ) Not Detected LAB MICROBIOLOGY METHOD 09/28/2024 5:10 PM EST [facility] Swab Both anterior nares / Unknown Non-blood Collection / Unknown 09/28/2024 4:05 PM EST 09/28/2024 4:07 PM EST Narrative [facility] - 09/28/2024 5:10 PM EST Testing was performed using the VirnetX Respiratory Pathogen PCR Assay. All results must be correlated with the clinical findings. Results should not be used as the sole basis for diagnosis. False Negative results may occur from the presence of sequence variants in the region targeted by the assay or the presence of inhibitors. Results may be affected by concurrent antiviral/antimicrobial therapy or levels of organisms that are below the limit of detection. 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
[2024-12-20 16:25] LABS: HCG Quantitative 140 mIU/mL
== END 2024-12-20 14:33 | disposition home or self-care (01) ==
LOC: HO.HHCL 14:32
PROVIDERS: Visit Provider General Practice
DX: Z32.01 Encounter for pregnancy test, result positive (principal)
CPT/HCPCS: 36415; 84702

== ENCOUNTER 2025-06-27 11:35 | Outpatient (REF) | payer MEDICAID, SELFPAY ==
--- OUTSIDE RECORDS SUMMARY | 2025-06-27 12:56 | XMS_ITS | Clinical Summary ---
Author Organization 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 Name Role Phone Physician, Pcp Unknown Primary Care Provider Naima vailable Allergies Active Allergy Reactions Criticality Noted Date Comments Ibuprofen Hives 09/28/2024 Morphine Rash High 03/18/2022 Acetaminophen Hives 09/28/2024 Medications No known medications Active Problems No known active problems Social History Tobacco Use Types Packs/Day Years [...] 71 12/18/2024 7:29 PM EST Temperature 37.3 C (99.1 F) 12/18/2024 7:29 PM EST Respiratory Rate 20 12/18/2024 7:29 PM EST [...] Cervical Cancer Screening: P ap Smear 2011 HIV Screening 10/13/2022 Hepatitis C Screening 10/13/2022 Social Influencers of Health Screening 10/13/2022 COVID-19 Vaccine (3 - 2023-2 5 season) 2024 05/10/2021, 04/19/2021 Depression Screening 11/10/2024 Influenza Vaccine (#1) 2025 08/06/2015 DTaP,Tdap,and Td Vaccines (3 - Td or Tdap) 03/03/2026 03/03/2016, 09/30/2015 Hepatitis A Vaccines Aged Out 04/12/2022, 04/01/2019 No longer eligible based on patient's age to complete this topic Meningococcal ACWY Vaccine Aged Out 01/14/2024 N o longer eligible based on patient's age to complete this topic Pneumococcal Vaccine: Pediatrics (0 to 5 Years) and At-Risk Patients (6 to 49 Years) Aged Out 07/19/2024, 09/30/2015 No longer [...] age to complete this topic Meningococcal B Vaccine Aged Out No l onger eligible based on patient's age to complete this topic RSV Immunization Patients Under 20 months Aged Out No longer eligible b ased on patient's age to complete this topic Varicella Vaccines Aged Out No longer eligible based on patient's age to complete this topic Insurance MEDICAID - [place] Care Teams Surface Ship Usw Supervisor Relationship Specialty Start Date End Date Physician, Pcp Unknown PCP - General 09/28/24
[2025-06-27 13:16] LABS: MANUAL DIFF FLAG NO
[2025-06-27 13:23] LABS: Hematocrit 37.1 % (37.0-47.0); Hemoglobin 13.5 g/dl (12.0-16.0); Imm Gran Abs Auto 0.04 X10*3/uL (0.00-0.03); Imm Gran Pct Auto 0.4 % (0.0-0.4); Lymphocytes Absolute Auto 1.5 X10*3/uL (1.2-4.9); Mean Corpuscular HGB Conc 36.4 g/dl (31.0-35.0); Mean Corpuscular Hemoglobin 32.5 pg (27.0-33.0); Mean Corpuscular Volume 89.4 fL (80.0-98.0); NRBC Abs Auto 0.000 X10*3/uL (0.0-0.012); NRBC Pct Auto 0.0 /100WBC (0.0-0.2); Platelet Count 287 X10*3/uL (160-400); Red Blood Count 4.15 X10*6/uL (4.20-5.50); White Blood Count 9.6 X10*3/uL (4.8-10.8)
[2025-06-27 13:56] LABS: Hemoglobin A1C 95.4566 umol/L; Total Hemoglobin (HGBA1C) 3553.4507 umol/L
[2025-06-27 17:23] LABS: Alanine Aminotransferase 12 U/L (0-31); Albumin Level 3.4 g/dL (3.5-5.0); Alkaline Phosphatase 109 U/L (39-117); Anion Gap 13 (12-20); Aspartate Amino Transferase 20 U/L (5-31); Blood Urea Nitrogen 5 mg/dL (9-16); Calcium 9.2 mg/dL (8.4-10.2); Carbon Dioxide 21 mmol/L (22-29); Chloride 108 mmol/L (96-108); Estimated Glomerular Filt Rate > 60; Potassium 3.0 mmol/L (3.3-5.1); Sodium 139 mmol/L (135-145); Total Protein 6.8 g/dL (6.5-8.0)
[2025-06-28 08:02] LABS: Syphilis Screen Nonreactive (Nonreactive)
[2025-06-28 08:09] LABS: HBS Num1 132.99 mIU/mL (0-7.99); HBc Num1 0.07 S/CO (0.00-0.79); HBsAGNum1 0.34 S/CO (0.00-0.99); Hepatitis B Surface Antigen Negative (Negative); ~HepC Num1 0.09 S/CO (0.00-0.79); ~Hepatitis B Surface Antibody REACTIVE (Nonreactive); ~Hepatitis C Antibody Nonreactive (Nonreactive)
[2025-06-28 19:38] LABS: HIV RNA PCR Qn Copies 141 copies/mL (NOT DETECTED); HIV RNA PCR Qn Log Copies 2.15 (NOT DETECTED)
[2025-06-30 07:54] LABS: TS Negative Control Passed; TS Panel A 0; TS Panel B 0; TS Positive Control Passed; TSpotTB Negative (Negative)
[2025-07-02 13:08] LABS: Absolute CD3 Count 1258 cells/uL (840-3060); Absolute CD8 Count 637 cells/uL (180-1170); Percent CD3 Cells 87 % (57-85); Percent CD8 Cells 44 % (12-42)
== END 2025-06-27 11:36 | disposition home or self-care (01) ==
LOC: HO.HHCL 11:35
PROVIDERS: PCP General Practice; Visit Provider Student in an Organized Health Care Education/Training Program
DX: Z11.3 Encounter for screening for infections with a predominantly sexual mode of transmission (principal); Z11.59 Encounter for screening for other viral diseases; Z11.1 Encounter for screening for respiratory tuberculosis; B20 Human immunodeficiency virus [HIV] disease
CPT/HCPCS: 36415; 80053; 82248; 83036; 85025; 86359; 86360; 86481; 86592; 86704; 86706; 86780; 86803; 87340; 87536

== ENCOUNTER 2025-06-30 12:19 | Outpatient (REF) | payer MEDICAID, SELFPAY ==
[2025-06-30 13:41] LABS: Magnesium 1.6 mg/dL (1.6-2.6); Potassium 3.3 mmol/L (3.3-5.1)
== END 2025-06-30 12:20 | disposition home or self-care (01) ==
LOC: HO.HHCL 12:19
PROVIDERS: PCP General Practice; Visit Provider Student in an Organized Health Care Education/Training Program
DX: E87.6 Hypokalemia (principal)
CPT/HCPCS: 36415; 83735; 84132

== ENCOUNTER 2025-07-25 15:06 | Outpatient (REF) | payer MEDICAID, SELFPAY ==
--- OUTSIDE RECORDS SUMMARY | 2025-07-25 20:33 | XMS_ITS | Clinical Summary ---
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
[2025-07-26 21:08] LABS: HIV RNA PCR Qn Copies NOT DETECTED copies/mL (NOT DETECTED); HIV RNA PCR Qn Log Copies NOT DETECTED (NOT DETECTED)
== END 2025-07-25 15:07 | disposition home or self-care (01) ==
LOC: HO.HHCL 15:06
PROVIDERS: PCP General Practice; Referring Provider Student in an Organized Health Care Education/Training Program; Visit Provider General Practice
DX: B20 Human immunodeficiency virus [HIV] disease (principal)
CPT/HCPCS: 36415; 87536